=== PATIENT | male | born 1925 | race Caucasian/White ===

== ENCOUNTER 2017-06-21 16:07 | Inpatient (IN) | payer OTHER ==
[~2017-06-21] VITALS: Ht 167.6 cm; Wt 65.8 kg
[2017-06-21 18:38] LABS: BASOPHIL % 0.4 % (0-2); PLATELET COUNT 249 x10^3mcL (130-400); RED CELL DISTRIBUTION WIDTH 13.9 % (11.5-14.5)
[2017-06-21 18:45] LABS: ALKALINE PHOSPHATASE 113 U/L (46-116); ALT/SGPT 18 U/L (16-63); AMYLASE 92 U/L (25-115); AST/SGOT 13 U/L (15-37); BILIRUBIN TOTAL 0.65 mg/dL (0.20-1.00); CALCIUM 8.6 mg/dL (8.5-10.1); CHLORIDE SERUM 110 mmol/L (98-107); CREATININE SERUM 2.1 mg/dL (0.7-1.3); GLUCOSE SERUM 109 mg/dL (74-106); LIPASE 325 IU/L (73-393); SODIUM SERUM 143 mmol/L (136-145)
[2017-06-21 18:48] LABS: POTASSIUM SERUM 5.6 mmol/L (3.5-5.1)
[2017-06-21] MEDS ORDERED: HYDRALAZINE10 MG PO (20:38)
[2017-06-21] MEDS ORDERED: LISINOPRIL2.5 MG PO (20:38)
[2017-06-21 20:43] LABS: UA SPECIFIC GRAVITY 1.025 (1.005-1.035); microscopic required? YES; urine erythrocyte TRACE (NEGATIVE)
[2017-06-21 21:07] VITALS: BP 147/60
[2017-06-21 21:16] VITALS: Ht 167.6 cm; Wt 65.8 kg
[2017-06-21 21:48] LABS: MAGNESIUM 1.7 mg/dL (1.8-2.4); PHOSPHOROUS 3.1 mg/dL (2.5-4.9)
[2017-06-21 21:50] LABS: CHOLESTEROL/HDL RATIO 2.1
[2017-06-21 21:56] LABS: T3 TOTAL 0.81 ng/mL
[2017-06-21 21:58] LABS: FREE THYROXINE INDEX 2.8 ug/dL (1.4-4.5); T4(THYROXINE) 7.8 ug/dL (4.7-13.3)
[2017-06-21 22:17] LABS: FREE T4 1.04 ng/dL (0.76-1.46)
[2017-06-22 06:24] VITALS: BP 130/78
[2017-06-22 06:39] LABS: BASOPHIL % 0.2 % (0-2); PLATELET COUNT 217 x10^3mcL (130-400)
[2017-06-22 07:12] LABS: CALCIUM 8.6 mg/dL (8.5-10.1); CARBON DIOXIDE 15.6 mmol/L (21-32); CHLORIDE SERUM 112 mmol/L (98-107); CREATININE SERUM 2.2 mg/dL (0.7-1.3); GLUCOSE SERUM 99 mg/dL (74-106); MAGNESIUM 2.5 mg/dL (1.8-2.4); PHOSPHOROUS 3.4 mg/dL (2.5-4.9); POTASSIUM SERUM 5.2 mmol/L (3.5-5.1); SODIUM SERUM 144 mmol/L (136-145)
[2017-06-22 09:57] VITALS: BP 144/64
[2017-06-22 14:09] VITALS: BP 139/55
[2017-06-22 17:23] VITALS: BP 129/74
[2017-06-22 22:09] VITALS: BP 138/55
[2017-06-23] VITALS (7 sets, daily range): BP systolic 107–146; BP diastolic 53–77
[2017-06-23 06:16] LABS: BASOPHIL % 0.4 % (0-2); PLATELET COUNT 183 x10^3mcL (130-400); RED CELL DISTRIBUTION WIDTH 13.6 % (11.5-14.5)
[2017-06-23 06:21] LABS: CALCIUM 8.2 mg/dL (8.5-10.1); CARBON DIOXIDE 17.5 mmol/L (21-32); CHLORIDE SERUM 114 mmol/L (98-107); CREATININE SERUM 2.1 mg/dL (0.7-1.3); GLUCOSE SERUM 90 mg/dL (74-106); PHOSPHOROUS 3.1 mg/dL (2.5-4.9); POTASSIUM SERUM 4.3 mmol/L (3.5-5.1); SODIUM SERUM 142 mmol/L (136-145)
[2017-06-23] MEDS ORDERED: MIRALAX17 GM/Dose PO (13:01)
[2017-06-23] MEDS ORDERED: GOOD SENSE OMEP20 MG PO (13:01)
[2017-06-23] MEDS ORDERED: REG5 PO (13:03)
[2017-06-24 06:55] LABS: CALCIUM 8.2 mg/dL (8.5-10.1); CARBON DIOXIDE 17.8 mmol/L (21-32); CHLORIDE SERUM 113 mmol/L (98-107); CREATININE SERUM 1.9 mg/dL (0.7-1.3); GLUCOSE SERUM 91 mg/dL (74-106); MAGNESIUM 1.6 mg/dL (1.8-2.4); PHOSPHOROUS 3.2 mg/dL (2.5-4.9); POTASSIUM SERUM 4.3 mmol/L (3.5-5.1); SODIUM SERUM 142 mmol/L (136-145)
[2017-06-24 07:05] LABS: BASOPHIL % 0.4 % (0-2); PLATELET COUNT 187 x10^3mcL (130-400); RED CELL DISTRIBUTION WIDTH 13.8 % (11.5-14.5)
[2017-06-24 07:40] VITALS: BP 156/71
[2017-06-24 14:29] VITALS: BP 150/60
[2017-06-24 16:54] VITALS: BP 153/63
[2017-06-24 21:20] VITALS: BP 176/74
[2017-06-25 05:38] VITALS: BP 164/82
[2017-06-25 07:14] LABS: CALCIUM 8.9 mg/dL (8.5-10.1); CARBON DIOXIDE 21.6 mmol/L (21-32); CHLORIDE SERUM 111 mmol/L (98-107); CREATININE SERUM 1.8 mg/dL (0.7-1.3); GLUCOSE SERUM 114 mg/dL (74-106); MAGNESIUM 1.8 mg/dL (1.8-2.4); PHOSPHOROUS 2.6 mg/dL (2.5-4.9); POTASSIUM SERUM 4.9 mmol/L (3.5-5.1); SODIUM SERUM 142 mmol/L (136-145)
[2017-06-25 07:34] LABS: BASOPHIL % 0.5 % (0-2); PLATELET COUNT 210 x10^3mcL (130-400); RED CELL DISTRIBUTION WIDTH 13.7 % (11.5-14.5)
[2017-06-25 09:10] VITALS: BP 143/73
[2017-06-25 14:05] VITALS: BP 127/52
[2017-06-25 17:30] VITALS: BP 125/55
[2017-06-25 17:47] VITALS: BP 127/52
== END 2017-06-25 20:20 | DRG 391 ==
LOC: ED 16:07 → DU 19:31
PROVIDERS: Emergency Medicine; Family Medicine; ADMIT Family Medicine
DX: K59.8 Other specified functional intestinal disorders (principal); N17.0 Acute kidney failure with tubular necrosis; I12.9 Hypertensive chronic kidney disease with stage 1 through stage 4 chronic kidney disease, or unspecified chronic kidney disease; N18.3 Chronic kidney disease, stage 3 (moderate); E87.5 Hyperkalemia; E83.51 Hypocalcemia; E87.8 Other disorders of electrolyte and fluid balance, not elsewhere classified; E11.22 Type 2 diabetes mellitus with diabetic chronic kidney disease; E83.42 Hypomagnesemia; D63.8 Anemia in other chronic diseases classified elsewhere; Z79.4 Long term (current) use of insulin; Z90.49 Acquired absence of other specified parts of digestive tract
CPT/HCPCS: 83880; 84439; 97110-GP; 97116-GP; 97530-GP; J2270; J2405; J3475; J3490; J7030; Q0092